=== PATIENT | female | born 1995 | race African-American/Black ===

== ENCOUNTER 2021-10-21 05:20 | Emergency (ER) | payer MEDICAID ==
[~2021-10-21] VITALS: Ht 170.2 cm; Wt 78.0 kg
[2021-10-21 05:37] VITALS: BP 114/57
[2021-10-21 07:02] LABS: BASOPHILS % 0.8 % (0.0-2.0); EOSINOPHILS % 0.8 % (0.0-5.0); HEMATOCRIT. 35.9 % (36.0-48.0); HEMOGLOBIN. 11.9 g/dL (12.0-16.0); LYMPHOCYTES % 37.3 % (20.0-50.0); MEAN CORPUSCULAR HEMOGLOBIN 27.8 pg (28.0-32.0); MEAN PLATELET VOLUME 9.1 fl (7.4-10.4); NEUTROPHILS % 51.1 % (40.0-76.0); PLATELET 216 x1000/uL (130-400); RED BLOOD CELL COUNT 4.28 mill/uL (4.2-5.4)
[2021-10-21 07:05] LABS: CHLORIDE 107 mEq/L (98-107)
[2021-10-21 07:26] LABS: HCG SCREEN NEGATIVE
== END 2021-10-21 11:23 | disposition left against medical advice (07) ==
LOC: ER 05:20
DX: T59.811A Toxic effect of smoke, accidental (unintentional), initial encounter (principal); Y92.9 Unspecified place or not applicable
CPT/HCPCS: 36415; 71045; 80053; 83605; 84484; 84703; 85025; 99284